=== PATIENT | female | born 1960 | race Caucasian/White ===

== ENCOUNTER 2021-09-04 14:19 | Emergency (ER) | payer SELFPAY ==
[2021-09-04] MEDS ORDERED: Lidocaine 1% PF 5 ML VIAL ONE (14:35)
== END 2021-09-04 15:28 | disposition home or self-care (01) ==
LOC: CSHERS 14:19
DX: S61.210A Laceration without foreign body of right index finger without damage to nail, initial encounter (principal); E03.9 Hypothyroidism, unspecified
CPT/HCPCS: 12002

== ENCOUNTER 2022-11-08 18:26 | Emergency (ER) | payer SELFPAY ==
[2022-11-08] MEDS ORDERED: Acetaminophen 500 MG TAB ONE (19:34)
[2022-11-08] MEDS ORDERED: Ibuprofen 200 MG TAB ONE (19:35)
[2022-11-08] MEDS ORDERED: cefTRIAXone\\ROCEPHIN 1 GM VIAL ONE (19:35)
[2022-11-08] MEDS ORDERED: Dexamethasone 4 MG TAB ONE (19:35)
[2022-11-08 20:49] LABS: SARS-CoV-2 NAA Rapid Test Not Detected (NotDetected)
== END 2022-11-08 21:18 | disposition home or self-care (01) ==
LOC: CSHERS 18:26
DX: B34.9 Viral infection, unspecified (principal); R51.9 Headache, unspecified; E03.9 Hypothyroidism, unspecified; Z20.822 Contact with and (suspected) exposure to COVID-19
CPT/HCPCS: 71045; 96372; J0696; J8540